=== PATIENT | male | born 1965 | race African-American/Black ===

== ENCOUNTER 2017-04-06 21:59 | Observation (INO) ==
[2017-04-06] MEDS ORDERED: METOCLOPRAMIDE 10 MG/2 ML VIAL IV STA (22:18)
[2017-04-06] MEDS ORDERED: ONDANSETRON 4 MG/2 ML VIAL IV STA (22:18)
[2017-04-06] MEDS ORDERED: PANTOPRAZOLE 40 MG VIAL IV STA (22:18)
[2017-04-06] MEDS ORDERED: SODIUM CHLORIDE 0.9% 500 ML IV STA (22:18)
--- NOTE | 2017-04-06 22:24 | Emergency Department Note ---
Arrival - Arrival Chief Complaint: Weakness Stated Complaint: aching all over ED Nursing Triage Note: C/O Chills/generalized weakness. Onset a couple of days ago progressively getting worse. Pt reports that his blood pressure was low at home (80/40). FSG 76 at time of triage Mode of Arrival: Ambulatory Limitations: No Limitations Source: Patient, Family Time Seen by Provider: 04/06/17 22:18 - History of Present Illness HPI Narrative: This 52-year-old black male presents with a 2 day history of what he described as generalized profound weakness associated with fever, chills, nausea, and an episode of vomiting. This culminated in a syncopal episode which his mother stated the patient was unconscious for 5 minutes. The patient states that prior to the syncopal spell he noted some dizziness but no other symptoms including slurred speech, visual changes, headache, or focal deficits. Patient denies any complaints of cough, sinus symptoms, dysuria, urgency, abdominal pain , or diarrhea. He is a diabetic and has not experienced any labile blood sugars during this timeframe. Accu-Chek on arrival here was 76. Currently appears in no acute distress. Onset (ago): day(s) (Patient presents 2 days post onset of symptoms) Allergies/Adverse Reactions: Allergies Allergy/AdvReac Type Severity Reaction Status Date / Time No Known Allergies Allergy Verified 04/06/17 22:03 Home Medications: Home Medications Medication Instructions Recorded Confirmed Type Metformin HCl 500 mg PO BID 04/06/17 04/06/17 History Valsartan/Hydrochlorothiazide 1 each PO DAILY 04/06/17 04/06/17 History [Valsartan-Hctz 160-12.5 mg Tab] glipiZIDE [Glipizide] 20 mg PO DAILY 04/06/17 04/06/17 History Review of System - Review of System 12 point system: reviewed and no additional remarkable complaints except as stated - Review of System Constitutional: Present: as per HPI Head/Ears/Nose/Throat: Present: see HPI Respiratory: Present: as per HPI Gastrointestinal: Present: as per HPI Genitourinary male: Present: as per HPI Musculoskeletal: Present: as per HPI Medical,Surgical,& Family Hx - Medical History Cardio: History of: Hypertension Endocrine: History of: Diabetes Mellitus (NIDDM), Dyslipidemia - Social History Smoking Status: Never smoker Frequency of Alcohol Use: None Type of Drug Use: None Exam Physical Examination: GENERAL: Obese black male in no acute distress. HEENT: Normocephalic. No trauma. Moist mucous membranes. EOMI. PERRLA. ENT NML NECK: Supple. No adenopathy. CARDIAC: Regular. No murmurs. Heart rate 75 CHEST: Clear to auscultation. No respiratory distress. O2 sat 99% ABDOMEN: Soft. Nontender. Active bowel sounds. EXTREMITIES: No trauma. Normal ROM. No pedal edema. SKIN: No diaphoresis. No rash. NEURO: Alert. Neuro intact. No focal deficits. Vital Signs: Vital Signs Temperature 99.5 F 04/06/17 22:08 Pulse Rate 79 04/06/17 22:08 Respiratory Rate 20 04/06/17 22:08 Blood Pressure 122/80 04/06/17 22:08 O2 Sat by Pulse Oximetry 99 04/06/17 22:05 Course - Reevaluation(s) Reevaluation #1: Discussed with family and patient need for hospitalization given his syncopal episode in his low hematocrit. - Consultations Consultation #1: Discussed with hospitalist service who will admit for further evaluation treatment. Results - Labs CBC & BMP: 04/06/17 22:46 04/06/17 22:46 Labs: I have noted the severe anemia as well as otherwise grossly normal lab with evidence of mild renal azotemia and normal cardiac's. - Diagnostic Findings Procedure: Chest x-ray: image reviewed by me, report reviewed by me (Normal chest), CT: image reviewed by me, report reviewed by me (Head normal brain) Disposition Clinical Impression: Syncope, Moderate anemia Time of Disposition: 01:01
[2017-04-06] MEDS ORDERED: PANTOPRAZOLE 40 MG VIAL IV ONE (22:42)
[2017-04-06] MEDS ORDERED: ONDANSETRON 4 MG/2 ML VIAL ONE (22:42)
[2017-04-06] MEDS ORDERED: METOCLOPRAMIDE 10 MG/2 ML VIAL ONE (22:42)
[2017-04-06 23:04] LABS: Basophils % 0.3 % (0.0-0.8); Eosinophils # 0.1 10*3/uL (0.0-0.87); Eosinophils % 0.9 % (0.00-10.9); Hematocrit 25.8 VOL% (42.0-52.0); Hemoglobin 8.3 GM/DL (14.0-18.0); Immature Granulocytes % 0.7 %; Immature Granulocytes Absolute 0.08 #; Lymphocytes # 1.6 10*3/uL (1.4-4.0); Lymphocytes % 13.7 % (21.2-54.2); Mean Corpuscular HGB Conc 32.2 GM/DL (32-36); Mean Corpuscular Hemoglobin 27 PG (27-34); Mean Corpuscular Volume 84.3 FL (87-102); Mean Platelet Volume 10.9 FL (9.6-12.0); Monocytes % 8.5 % (1.7-12.7); Neutrophils # 8.9 10*3/uL (1.4-7.4); Neutrophils % 75.9 % (38.7-73.9); Platelet Count 380 T/CUMM (130-400); Red Blood Count 3.06 MC/CUMM (3.8-5.5); White Blood Count 11.8 T/CUMM (4-12)
[2017-04-06 23:28] LABS: Alanine Aminotransferase 63 U/L (16-61); Alkaline Phosphatase 105 U/L (45-117); Amylase 34 U/L (25-115); Aspartate Amino Transferase 48 U/L (0-37); Bilirubin,Total < 0.39 MG/DL (0.2-1.0); Blood Urea Nitrogen 20 MG/DL (7-18); Calcium 9.3 MG/DL (8.5-10.1); Glucose 83 MG/DL (74-106); Osmolality,Calculated 282.3 MOS/KG (273-304); Potassium 3.6 MMOL/L (3.5-5.1); Sodium 141 MMOL/L (136-145)
[2017-04-06 23:31] LABS: Troponin I Only < 0.015 NG/ML (0.00-0.045)
[2017-04-07] LABS: Apearance,Urine Slightly Hazy (Clear); Bilirubin,Urine Negative (Negative); Blood, Urine Negative (Negative); Glucose,Urine (UA) Negative (Negative); Hyaline Casts,Urine 7 /LPF (0-3); Ketones,Urine 5 mg/dL (Negative); Mucus,Urine Many /LPF (Occasional); Nitrite,Urine Negative (Negative); Protein,Urine 30 MG/DL; RBC,Urine <1 /HPF (0-4); Squamous Epithelial Cell,Urine Occasional /HPF (0-10); Urine Color Yellow (Yellow); Urine Specific Gravity 1.027 (1.001-1.035); Urine Urobilinogen < 2.0 EU/DL (0.2-1.0); WBC,Urine 1 /HPF (0-6)
[2017-04-07] MEDS ORDERED: SODIUM CHLORIDE 0.9% 1,000 ML IV STA (00:24)
--- NOTE | 2017-04-07 01:57 | Hospitalist History & Physical ---
Assessment and Plan - Time spent with patient Time spent with patient: Greater than 30 minutes (1) Syncope Status: Acute Assessment and plan: Admit to hospitalist services. Telemetry. He is anemic without explanation at this time. H/H 8.3/25.8, and his BP has been low today. I suspect that syncope is related to these. Consult GI. Occult stool. Orthostatic vital signs. Neuro checks Q4 hours. Recheck H/H this a.m. Obtain Iron, TIBC, and Ferritin. He takes ASA 81 mg PO daily; Hold. Hold home BP medications. SCDs for DVT prophylaxis until we know if he has a bleed or not. Repeat CBC and CMP in a.m. Current Visit: Yes (2) Anemia Status: Acute Assessment and plan: As above. Current Visit: Yes (3) Acute kidney failure Status: Acute Assessment and plan: Creatinine 1.4 Given 1500 ml NS bolus in ED. Continue hydration with NS at 125 ml/hr. Recheck CMP in a.m. Current Visit: Yes (4) Elevated LFTs Status: Acute Assessment and plan: Hepatitis panel ordered. Current Visit: Yes (5) Hypertension Status: Acute Assessment and plan: His pressure has been low today. Hold home BP medications until stable. Monitor. Current Visit: Yes (6) Diabetes Status: Acute Assessment and plan: Creatinine 1.4; Hold Metformin. Continue glipizide. Accuchecks and SSI ACHS. ADA diet. Current Visit: Yes (7) DVT prophylaxis Status: Acute Assessment and plan: SCDs at this time until known if patient has a bleed anywhere. Current Visit: Yes History of Present Illness Chief complaint: Syncope History of present illness: Mr. Moreno is a 52 year old male with a past medical history of hypertension and diabetes who presented to the ED tonight following a syncopal episode at home. He reports that he was taking his blood pressure and noticed that it was lower than normal. After which he told his mother that he did not feel well like he was going to pass out. He stood up to walk to the couch and passed out on the couch. His mother reports that he had loss of consciousness for about 5 minutes and would not respond to her. She further reports that his blood pressure was 89/49 at home. She reports that in childhood he had episodes in which he would have vision loss, for which he was treated with aspirin for migraine. Mr. Moreno states that he has had subjective fever, chills, generalized body aches, and cough since Tuesday. He denies headache, chest pain, shortness of breath, dysuria, palpitations, blood in stool, or hematuria. He has had some nausea and one episode of vomiting tonight. Upon arrival in the ED his blood pressure was 122/80, heart rate 79, respirations 20, and O2 sats of 99% on room air. His blood sugar upon arrival was 76, and he reports eating yogurt just prior to the syncopal episode. Significant labs include hemoglobin 8.3, hematocrit 25.8, MCV 84.3, neutrophil percent 75.9 lymphocyte percent 13.7 BUN 20, creatinine 1.4, and troponin less than 0.015. CT of the head was negative for any acute process. Currently, his blood pressure is 110/ 62 and heart rate 65. He is lying in bed resting comfortably. Hospitalist services were consulted, and the patient will be admitted for further evaluation and treatment. Home medications were reviewed and reconciled. This patient is full code. Home Medications Medication Instructions Recorded Confirmed Type Metformin HCl 500 mg PO BID 04/06/17 04/06/17 History Valsartan/Hydrochlorothiazide 1 each PO DAILY 04/06/17 04/06/17 History [Valsartan-Hctz 160-12.5 mg Tab] glipiZIDE [Glipizide] 20 mg PO DAILY 04/06/17 04/06/17 History Allergies Allergy/AdvReac Type Severity Reaction Status Date / Time No Known Allergies Allergy Verified 04/06/17 22:03 Medical,Surgical,& Family Hx - Medical History Cardio: History of: Hypertension Endocrine: History of: Diabetes Mellitus (NIDDM), Dyslipidemia Rheumatology: History of;: Psoriasis - Surgical History HEENT Surgeries: Surgical HX of: Tonsilectomy & Adenoidectomy - Family History Family History: Reports;: Family Cancer, Family Diabetes (Prostate CA-father), Family Hypertension Additional Family History: COPD-Father - Social History Smoking Status: Former smoker Have you smoked in the last 12 months: No Frequency of Alcohol Use: None Type of Drug Use: None Marital Status: Lives With:: Spouse Functional capacity: independent ambulation 12 point system: reviewed and no additional remarkable complaints except as stated - Constitutional Constitutional: Present: chills, fever(s), weakness, other (Generalized body aches). Absent: headache(s) - EENT Eyes: Absent: blurry vision, diplopia, loss of vision Ears: Absent: decreased hearing, ear discharge, ear pain Nose, mouth and throat: Absent: headache(s), nasal congestion, sore throat - Cardiovascular Cardiovascular: Present: lightheadedness. Absent: chest pain at rest, diaphoresis, dyspnea, edema, orthopnea, palpitations - Respiratory Respiratory: Absent: cough, dyspnea, wheezing - Gastrointestinal Gastrointestinal: Present: constipation, nausea, vomiting. Absent: abdominal pain, diarrhea - Genitourinary Genitourinary: Absent: dysuria, flank pain, hematuria, urinary frequency - Musculoskeletal Musculoskeletal: Absent: arthralgias, back pain, joint swelling, muscle weakness , myalgias - Neurological Neurological: Present: syncope. Absent: confusion, dizziness, headache(s), memory loss, numbness, paresthesias - Psychiatric Psychiatric: Absent: anxiety, depression - Endocrine Endocrine: Absent: cold intolerance, polydipsia, polyphagia, polyuria - Hematologic/Lymphatic Hematologic/Lymphatic: Absent: easy bleeding, easy bruising Exam - Constitutional Vitals: Period Temp Pulse Resp BP Sys/Garcia Pulse Ox Last 24 Hr 99.5 F-99.5 F 79-79 20-20 122-122/80-80 99 Exam: Constitutional System: Afebrile. Awake, alert, and oriented x 3. No distress. No tremulousness. Head: Normocephalic, atraumatic. Ears, Nose and Throat System: No pain or tenderness. No epistaxis or discharge Eyes System: Pupils equal, round, and reactive. Extraocular muscles intact. Neck: Supple, without adenopathy, No jugular venous distention. No thyromegaly, neck mass, or prior surgery apparent. Respiratory System: Chest clear to auscultation. Cardiovascular System: Heart with regular rate and rhythm. No murmur. GI System: Abdomen soft, nontender. Normo active bowel sounds present. Compressible ventral hernia noted. Musculoskeletal System: Limbs with no pedal edema. Full distal pulses. Normal capillary refill. Silver scaly lesions on BLEs. Neurological System: No discernable sensory deficit. No aphasia Psychiatric System: Conversation is rational Results - Labs CBC & BMP: 04/06/17 22:46 10/04/17 22:46 Lab Results: I have reviewed the past 24 hour labs Labs: WBC 11.8 RBC 3.06 Hgb 8.3 HCT 25.8 MCV 84.3 Platelet 380 Neutrophil percent 75.9 Lymphocyte percent 13.7 Sodium 141 Potassium 3.6 Chloride 103 BUN 20 Creatinine 1.4 Glucose 83 Calcium 9.3 Total bilirubin less than 0.39 AST 48 ALT 63 Alkaline phosphatase 105 Total CK 368 CK-MB 1.1 Troponin less than 0.015 Albumin 3.0 Urinalysis negative. - Diagnostic Findings Procedure: CT: report reviewed by me (CT Head)
[2017-04-07] MEDS ORDERED: DEXTROSE 50% 25 GM/50 ML VIAL IV PRN (02:00)
[2017-04-07] MEDS ORDERED: DOCUSATE SODIUM 100 MG CAPSULE PO PRN (02:00)
[2017-04-07] MEDS ORDERED: GLUCAGON 1 MG VIAL IM PRN (02:00)
[2017-04-07] MEDS ORDERED: ACETAMINOPHEN 325 MG TABLET PO PRN (02:00)
[2017-04-07] MEDS ORDERED: ONDANSETRON 4 MG/2 ML VIAL IV PRN (02:00)
[2017-04-07] MEDS: SODIUM CHLORIDE 0.9% 1,000 ML IV SCH ×4 (04:08→20:33)
[2017-04-07 04:56] LABS: % Iron Saturation 9.6 % (18-50); Ferritin 240.3 ng/ml (26-388); Free T4 (Free Thyroxine) 1.39 NG/DL (0.76-1.46)
[2017-04-07 05:01] LABS: Magnesium 2.4 MG/DL (1.8-2.4); Risk Ratio 4.44; Thyroid Stimulating Hormone 1.91 uIU/ml (0.358-3.74)
--- NOTE | 2017-04-07 06:45 | XRay Report ---
XR chest 2V Indication: Shortness of breath and fever Comparison: None available Findings: The heart and mediastinum are normal in size and configuration. The pulmonary vascularity is normal in caliber. There is faint increased left lower lung densities. No other lung infiltrates, effusions, pneumothorax or other abnormality is demonstrated. Impression: Faint increased left lower lung densities may indicate pneumonia. PROCEDURE INTERPRETED AT [facility] DEPARTMENT OF RADIOLOGY Final Report Signed by: Dr. Domingo Herzog
[2017-04-07 06:51] LABS: Hepatitis A Ab IgM Quant 0.17 Index; Hepatitis A Ab IgM Result Negative (Negative); Hepatitis B Core IgM Quant 0.11 Index; Hepatitis B Core IgM Result Negative (Negative); Hepatitis B Surface Ag Quant 0.25 Index; Hepatitis B Surface Ag Result Negative (Negative); Hepatitis C Virus Ab Quant 0.04 Index; Hepatitis C Virus Ab Result Negative (Negative)
--- NOTE | 2017-04-07 07:08 | CT Report ---
CT brain Indication: Syncope Comparison: None available Technique: Axial CT imaging of the brain is performed without contrast with 3 mm increments. Findings: No evidence of hemorrhage, mass mass effect midline shift or acute infarct seen. The brain parenchyma attenuation and differentiation appears within normal limits. The ventricles and cisterns are normal in caliber. No cranial or skull base abnormality is identified. Impression: No evidence of abnormality demonstrated. This CT exam was performed using one or more the following dose reduction techniques: Automated exposure control, adjustment of the MA and/or KV according to patient size, or use of iterative reconstruction technique. PROCEDURE INTERPRETED AT [facility] DEPARTMENT OF RADIOLOGY Final Report Signed by: Dr. Domingo Herzog
[2017-04-07 07:32] LABS: Hematocrit 30.8 VOL% (42.0-52.0); Hemoglobin 9.8 GM/DL (14.0-18.0)
[2017-04-07] MEDS: INSULIN LISPRO 100 UNIT/ML SUBCUT SCH ×4 (08:23→20:38)
[2017-04-07] MEDS: glipiZIDE 10 MG TABLET PO SCH (08:35)
[2017-04-07] MEDS: PANTOPRAZOLE 40 MG TABLET PO SCH (08:35)
[2017-04-07] MEDS ORDERED: ENOXAPARIN 40 MG/0.4 ML SYRINGE SUBCUT SCH (09:00)
--- NOTE | 2017-04-07 09:43 | Gastrointestinal Consult Note ---
<Susan Montalvo - Last Filed: 04/07/17 09:40> Assessment and Plan (1) Anemia Status: Acute Assessment and plan: 04/07-admitted with several day history of weakness with syncopal episode on last night and hypotension. No known prior history of anemia in the past. No overt bleeding. H&H 02/25 on admission. Iron studies noted as below. No prior history of endoscopy. Stools for occult blood currently pending. Consider EGD for further evaluation of anemia source. Plan an addendum to followed by Dr. Best. Current Visit: Yes History of Present Illness Chief complaint: Anemia History of present illness: Mr. Moreno is a 52 year old male who was admitted to the hospital on yesterday evening with several day history of weakness with fever and chills. Patient states that he was in his usual state of health until last Tuesday. 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 He states at first he thought maybe his blood sugar had dropped however this was not the case. He states that he felt a little bit dizzy at that time as well. Patient states he has had these symptoms off and on for the last several days however last night, he was at his mother's house. He states that he went to stand up and when he did he "passed out". Patient did not have a reported loss of consciousness that he can recall despite his mother stating patient was unconscious for approximately 5 minutes. At that time was brought to the emergency room via personal vehicle. Patient was found on admission to have anemia with an H&H of 02/25. He states that he has not been anemic in the past that he is aware of and denies any history of blood transfusions. He denies any reports of melena or hematochezia. Denies any recent weight loss. Denies any fever, chills or night sweats. He was also noted on admission to have mildly elevated transaminases with AST 48 ALT 63. Patient denies a prior history of elevated LFTs. He denies history of smoking or alcohol use. Iron studies were done with iron noted at 25, TIBC 261, saturation 9.6, ferritin 240 recheck on his H& H today is noted at 9.8/30.8 without blood transfusion. Patient denies any epigastric pain associated with eating. Denies any dysphagia however states he has had an increase in dyspepsia as of recently with belching and bloating as well as uncontrolled reflux with [id number] Tums. Patient denies any NSAID use except over the this past weekend due to the fever/chills, states he did take some ibuprofen. Home Medications Medication Instructions Recorded Confirmed Type Metformin HCl 500 mg PO BID 04/06/17 04/06/17 History Valsartan/Hydrochlorothiazide 1 each PO DAILY 04/06/17 04/06/17 History [Valsartan-Hctz 160-12.5 mg Tab] glipiZIDE [Glipizide] 20 mg PO DAILY 04/06/17 04/06/17 History Allergies Allergy/AdvReac Type Severity Reaction Status Date / Time No Known Allergies Allergy Verified 04/06/17 22:03 Medical,Surgical,& Family Hx - Medical History Cardio: History of: Hypertension Endocrine: History of: Diabetes Mellitus (NIDDM), Dyslipidemia Rheumatology: History of;: Psoriasis - Surgical History HEENT Surgeries: Surgical HX of: Tonsilectomy & Adenoidectomy - Family History Family History: Reports;: Family Cancer, Family Diabetes (Prostate CA-father), Family Hypertension - Social History Smoking Status: Never smoker Frequency of Alcohol Use: None Type of Drug Use: None 12 point system: reviewed and no additional remarkable complaints except as stated - Constitutional Constitutional: Present: as per HPI, weakness - EENT Eyes: Present: as per HPI Ears: Present: as per HPI Nose, mouth and throat: Present: as per HPI - Cardiovascular Cardiovascular: Present: as per HPI - Respiratory Respiratory: Present: as per HPI - Gastrointestinal Gastrointestinal: Present: as per HPI, nausea - Genitourinary Genitourinary: Present: as per HPI - Musculoskeletal Musculoskeletal: Present: as per HPI - Neurological Neurological: Present: as per HPI, syncope - Psychiatric Psychiatric: Present: as per HPI - Endocrine Endocrine: Present: as per HPI - Hematologic/Lymphatic Hematologic/Lymphatic: Present: as per HPI Exam - Constitutional Vitals: Period Temp Pulse Resp BP Sys/Garcia Pulse Ox Last 24 Hr 97 F-99.5 F 55-81 18-20 102-131/50-80 98-100 General appearance: normal weight, no acute distress - Head Head exam: Present: normal inspection, normocephalic - Eye Eye exam: Present: other (Lids and conjunctivae are unremarkable). Absent: scleral icterus - ENT ENT exam: Present: normal exam, normal oropharynx - Neck Neck exam: Present: normal inspection - Respiratory Respiratory exam: Present: clear to auscultation bilaterally. Absent: rales, rhonchi, wheezes - Cardiovascular Cardiovascular exam: Present: regular rate and rhythm. Absent: diastolic murmur , JVD, systolic murmur - GI/Abdominal GI/Abdominal exam: Present: normal bowel sounds, soft. Absent: ascites, distended, mass, organomegaly, tenderness - Extremities Exam Extremities exam: Present: normal inspection, full ROM - Back Exam Back exam: Present: normal inspection - Neurological Exam Neurological exam: Present: alert, oriented X3 - Psychiatric Psychiatric exam: Present: normal affect, normal mood - Skin Skin exam: Present: normal color, warm, dry Results - Labs CBC & BMP: 04/07/17 07:10 04/06/17 22:46 Lab Results: I have reviewed the past 24 hour labs <Meño Best - Last Filed: 04/07/17 21:16> History of Present Illness Chief complaint: 3030 History of present illness: Mr. Moreno is a 52 year old male Exam - Constitutional Vitals: Period Temp Pulse Resp BP Sys/Garcia Pulse Ox Last 24 Hr 97 F-99.5 F 55-81 18-20 98-132/50-80 97-100 Results - Labs CBC & BMP: 04/07/17 07:10 04/06/17 22:46
--- NOTE | 2017-04-07 10:35 | Hospitalist Progress Note ---
Assessment and Plan (1) Renal insufficiency Status: Acute Assessment and plan: His BUN and creatinine on admission were 20 and 1.4 respectively. It is unclear if this is acute or chronic. Current Visit: Yes (2) Syncope Status: Acute Current Visit: Yes (3) Anemia Status: Acute Assessment and plan: His hematocrit and hemoglobin today are 30.8 and 9.8 respectively. Current Visit: Yes Qualifiers: Anemia type: unspecified type Qualified Code(s): D64.9 - Anemia, unspecified (4) Hypertension Status: Acute Assessment and plan: Blood pressure today is 102/50. Current Visit: Yes (5) Diabetes Status: Acute Assessment and plan: His blood glucose today is 128. He continues on sliding scale regular insulin coverage. Current Visit: Yes Qualifiers: Diabetes mellitus type: type 2 Diabetes mellitus intermediate designer insulin use: without intermediate designer use Hospitalist: Subjective Interval history: Patient feels well today with no complaints. He is not experiencing dizziness or lightheadedness. He has been seen in consultation by gastroenterology who is planning to perform an EGD. Exam - Constitutional Vitals: Period Temp Pulse Resp BP Sys/Garcia Pulse Ox Last 24 Hr 97 F-99.5 F 55-81 18-20 102-131/50-80 98-100 General appearance: no acute distress - Head Head exam: Present: normal inspection - Neck Neck exam: Present: normal inspection - Respiratory Respiratory exam: Present: clear to auscultation bilaterally - Cardiovascular Cardiovascular exam: Present: regular rate and rhythm - GI/Abdominal GI/Abdominal exam: Present: normal bowel sounds, soft, other (Nontender with no palpable masses or hepatosplenomegaly.) - Extremities Exam Extremities exam: Present: normal inspection - Neurological Exam Neurological exam: Present: alert, oriented X3 - Skin Skin exam: Present: normal color, warm, intact Results - Labs CBC & BMP: 04/07/17 07:10 04/06/17 22:46
[2017-04-08] MEDS: SODIUM CHLORIDE 0.9% 1,000 ML IV SCH ×3 (03:43→21:30)
[2017-04-08 05:04] LABS: Basophils % 0.5 % (0.0-0.8); Eosinophils # 0.2 10*3/uL (0.0-0.87); Eosinophils % 3.2 % (0.00-10.9); Hematocrit 32.2 VOL% (42.0-52.0); Hemoglobin 10.1 GM/DL (14.0-18.0); Immature Granulocytes % 0.6 %; Immature Granulocytes Absolute 0.04 #; Lymphocytes # 1.7 10*3/uL (1.4-4.0); Lymphocytes % 26.7 % (21.2-54.2); Mean Corpuscular HGB Conc 31.4 GM/DL (32-36); Mean Corpuscular Hemoglobin 27 PG (27-34); Mean Corpuscular Volume 86.1 FL (87-102); Mean Platelet Volume 11.4 FL (9.6-12.0); Monocytes # 0.6 10*3/uL (0.11-0.8); Neutrophils # 3.7 10*3/uL (1.4-7.4); Platelet Count 320 T/CUMM (130-400); Red Blood Count 3.74 MC/CUMM (3.8-5.5); Red Cell Distribution Width 14.1 % (9.3-17.3); White Blood Count 6.2 T/CUMM (4-12)
[2017-04-08 05:46] LABS: Albumin 2.2 G/DL (3.4-5.0); Bilirubin,Total 0.7 MG/DL (0.2-1.0); Calcium 8.1 MG/DL (8.5-10.1); Osmolality,Calculated 292.6 MOS/KG (273-304); Potassium 4.9 MMOL/L (3.5-5.1); Total Protein 5.3 G/DL (6.4-8.3)
[2017-04-08] MEDS: INSULIN LISPRO 100 UNIT/ML SUBCUT SCH ×4 (08:45→21:20)
[2017-04-08] MEDS: glipiZIDE 10 MG TABLET PO SCH (08:45)
[2017-04-08] MEDS: PANTOPRAZOLE 40 MG TABLET PO SCH (08:46)
[2017-04-08] MEDS ORDERED: PROPOFOL 200 MG/20 ML VIAL IV ONE (09:00)
[2017-04-08] MEDS ORDERED: LIDOCAINE 2% 5 ML VIAL ONE (09:00)
--- NOTE | 2017-04-08 10:13 | Ultrasound Report ---
US abdomen Indication: Elevated LFT Comparison: None Technique: Multiple longitudinal and transverse real-time sonographic images of the abdomen are obtained. Findings: The liver measures 15.7 cm and demonstrates mildly increased echogenicity without focal abnormality on submitted images. Nonspecific mild gallbladder wall thickening. No significant gallbladder distention or evidence of cholelithiasis. The common bile duct measures 0.5 cm in diameter. There is no evidence of intrahepatic ductal dilatation. The right and left kidneys measure 11.4 cm and 10.8 cm, respectively. There is no evidence of hydronephrosis. The spleen measures 8.9 cm without focal abnormality. Evaluation of the pancreas limited secondary to bowel gas.. IVC and aorta: Visualized portions grossly unremarkable.. No evidence of ascites. IMPRESSION: Nonspecific mild gallbladder wall thickening. No significant gallbladder distention or evidence of cholelithiasis. Nuclear medicine hepatobiliary imaging study may be beneficial for further evaluation. Mild increased echogenicity of the liver may reflect steatosis. PROCEDURE INTERPRETED AT [facility] DEPARTMENT OF RADIOLOGY Final Report Signed by: Dr Nain Carbajal
--- NOTE | 2017-04-08 10:48 | History and Physical Update ---
History and Physical Update - Physical Exam Mental Status: alert and oriented Heart: regular rate and rhythm Lung: clear to auscultation Abdomen: within normal limits Vitals: within normal limits
--- NOTE | 2017-04-08 11:02 | Operative Note ---
Pre-op diagnosis: Anemia and epigastric pain Procedure: EGD with biopsy 52-year-old gentleman admitted with syncopal episode and anemia complaining of frequent reflux with nonsteroidal use and antiacids. Now for EGD to further evaluate. Informed consent was obtained from the patient He was sedated with general anesthesia per anesthesia protocol. Patient was placed in left lateral decubitus position the Olympus flexible video upper endoscope was inserted into the oral cavity under direct vision the esophagus was intubated. Findings: Esophagus-normal proximal mid esophageal mucosa. Distal esophagus with moderate hiatal hernia and distal esophagitis moderate. No Hay's no varices were identified no stricture was seen. Stomach-normal insufflation. Normal mucosa of the body fundus and cardia the stomach. In the antrum of the stomach 3 ulcerations each lira-based measuring 4 mm with no visible vessels were identified. Biopsies were taken from the periphery of these ulcers. Pylorus-normal Duodenum-normal from the bulb of the duodenum to the third portion of the duodenum. The procedure was terminated placed our procedure well he is discharge recovery in good condition. Postop diagnosis: 1. Acute peptic ulcer disease-continue PPI treatment. Follow-up biopsy- positive for H. pylori we will treat. Avoid nonsteroidals. 2. Gastroesophageal reflux disease with esophagitis-continue PPI treatment and antireflux precautions. 3. Abdominal ultrasound does confirm the presence of fatty liver and treatment of his hyperlipidemia weight control and glycemic control are suggested. 4. Advance diet as tolerated. Okay to discharge from my standpoint. I will be out over the weekend call coverage if needed. Anesthesia: other (General) Surgeon / Physician: Meño Best Estimated blood loss: none Specimens: other (Gastric ulcer) Condition: stable Disposition: post procedure unit Results - Labs CBC & BMP: 04/08/17 03:24 04/08/17 03:24 Discharge Plan - Discharge Medications No Action glipiZIDE [Glipizide] 20 mg PO DAILY Valsartan/Hydrochlorothiazide [Valsartan-Hctz 160-12.5 mg Tab] 1 each PO DAILY Metformin HCl 500 mg PO BID - Follow Up or Referral - Forms/Instructions
--- NOTE | 2017-04-08 11:04 | Hospitalist Progress Note ---
Assessment and Plan (1) Renal insufficiency Status: Acute Assessment and plan: His BUN and creatinine on admission were 13 and 1.1 respectively. The improvement of his renal function with intravenous sodium chloride is most compatible with acute on chronic renal insufficiency. Current Visit: Yes (2) Syncope Status: Acute Assessment and plan: He has experienced no recurrent episodes of syncope in the hospital. Current Visit: Yes (3) Anemia Status: Acute Assessment and plan: His hematocrit and hemoglobin today are 32.2 and 10.1 respectively today. Current Visit: Yes Qualifiers: Anemia type: unspecified type Qualified Code(s): D64.9 - Anemia, unspecified (4) Hypertension Status: Acute Assessment and plan: Blood pressure today is 116/65. Current Visit: Yes (5) Diabetes Status: Acute Assessment and plan: His blood glucose today is 100. He continues on sliding scale regular insulin coverage. Current Visit: Yes Qualifiers: Diabetes mellitus type: type 2 Diabetes mellitus jail insulin use: without customs brokerage agent use Hospitalist: Subjective Interval history: Patient feels well today with no complaints. He is to undergo EGD by gastroenterology today. Further recommendations pending those results. Exam - Constitutional Vitals: Period Temp Pulse Resp BP Sys/Garcia Pulse Ox Last 24 Hr 96.5 F-98.2 F 55-72 16-20 95-132/46-76 96-100 General appearance: no acute distress - Head Head exam: Present: normal inspection - Neck Neck exam: Present: normal inspection - Respiratory Respiratory exam: Present: clear to auscultation bilaterally - Cardiovascular Cardiovascular exam: Present: regular rate and rhythm - GI/Abdominal GI/Abdominal exam: Present: normal bowel sounds, soft, other (Nontender with no palpable masses or hepatosplenomegaly.) - Extremities Exam Extremities exam: Present: normal inspection - Skin Skin exam: Present: normal color, warm, intact Results - Labs CBC & BMP: 04/08/17 03:24 04/08/17 03:24
--- NOTE | 2017-04-08 11:50 | Anesthesia Post-Op ---
Anesthesia Post OP - Post Ansesthetic Evaluation Patient seen in post op: Yes Resp: within normal limits CV: within normal limits Mental: within normal limits Temp: within normal limits Dthy-Se-Icfutqozz: within normal limits Nausea and Vomiting: within normal limits Pain: within normal limits
[2017-04-09] MEDS: SODIUM CHLORIDE 0.9% 1,000 ML IV SCH ×2 (05:19→10:52)
[2017-04-09 07:48] VITALS: BP 112/60
[2017-04-09] MEDS ORDERED: PANTOPRAZOLE 40 MG TABLET PO SCH (09:30)
[2017-04-09] MEDS: glipiZIDE 10 MG TABLET PO SCH (09:33)
[2017-04-09] MEDS: INSULIN LISPRO 100 UNIT/ML SUBCUT SCH ×2 (09:34→12:38)
[2017-04-09] MEDS: PANTOPRAZOLE 40 MG TABLET PO SCH (09:35)
--- NOTE | 2017-04-09 09:44 | Discharge Summary ---
Hospital Course - Hospital Course Hospital Course: Mr. Moreno is a 52 year old male who was admitted to the hospital on yesterday evening with several day history of weakness with fever and chills. Patient states that he was in his usual state of health until last Tuesday. 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 He states at first he thought maybe his blood sugar had dropped however this was not the case. He states that he felt a little bit dizzy at that time as well. Patient states he has had these symptoms off and on for the last several days however last night, he was at his mother's house. He states that he went to stand up and when he did he "passed out". Patient did not have a reported loss of consciousness that he can recall despite his mother stating patient was unconscious for approximately 5 minutes. At that time was brought to the emergency room via personal vehicle. Patient was found on admission to have anemia with an H&H of 8/25. He states that he has not been anemic in the past that he is aware of and denies any history of blood transfusions. He denies any reports of melena or hematochezia. Denies any recent weight loss. Denies any fever, chills or night sweats. He was also noted on admission to have mildly elevated transaminases with AST 48 ALT 63. Patient denies a prior history of elevated LFTs. He denies history of smoking or alcohol use. Iron studies were done with iron noted at 25, TIBC 261, saturation 9.6, ferritin 240 recheck on his H& H today is noted at 9.8/30.8 without blood transfusion. Patient denies any epigastric pain associated with eating. Denies any dysphagia however states he has had an increase in dyspepsia as of recently with belching and bloating as well as uncontrolled reflux with [id number] Tums. Patient denies any NSAID use except over the this past weekend due to the fever/chills, states he did take some ibuprofen. Mr. Moreno was admitted to the hospital diagnosis of weakness, anemia, and possible gastrointestinal bleeding. He was seen in consultation by Dr. Meño Best of gastroenterology. The patient underwent esophagogastroduodenoscopy on 04/08/2017 demonstrating acute peptic ulcer disease and gastroesophageal reflux disease with esophagitis. An abdominal ultrasound demonstrated evidence of fatty liver. The patient was treated in the hospital with pantoprazole and continuation of his previous medications. At the time of his discharge she was comfortable with no complaints. Laboratory testing prior to discharge demonstrated hematocrit 32.2, hemoglobin 10.1, glucose 145, BUN 13, and creatinine 1.1. Diagnosis - Discharge Diagnosis (1) Renal insufficiency Status: Acute (2) Syncope Status: Acute (3) Anemia Status: Chronic (4) Hypertension Status: Chronic (5) Peptic ulcer disease Status: Acute (6) GERD with esophagitis Status: Acute (7) Fatty infiltration of liver Status: Chronic (8) Diabetes mellitus type 2 in obese Status: Chronic (9) Acute kidney failure Status: Acute Discharge Plan - Discharge Data Disposition: Disch To Home/Self Care Condition at Discharge: Stable Discharge Diet: diabetic diet Activity: resume usual activities as tolerated Driving: no restrictions - Discharge Medications New Atorvastatin [Lipitor] 40 mg PO BEDTIME #30 tablet Pantoprazole Tab [Protonix Tab] 40 mg PO BID #60 tablet Continue glipiZIDE [Glipizide] 20 mg PO DAILY Valsartan/Hydrochlorothiazide [Valsartan-Hctz 160-12.5 mg Tab] 1 each PO DAILY Metformin HCl 500 mg PO BID - Follow Up or Referral - Forms/Instructions Exam - Constitutional Vitals: Period Temp Pulse Resp BP Sys/Garcia Pulse Ox Last 24 Hr 96 F-98.1 F 47-63 16-20 105-134/56-73 92-100 Discharge Results Procedures and tests throughout hospitalization: Pending Orders 04/06/17 Blood Culture Stat 04/07/17 02:14 Occult Blood, Stool Stat Labs on day of discharge: Labs from last 24 hours 04/09/17 04/08/17 04/08/17 07:14 20:00 15:16 POC Glucose 140 H 191 H 139 H 04/08/17 04/06/17 12:01 22:05 POC Glucose 152 H 76 Preliminary micro results at discharge 04/06/17 Unknown Blood Culture - Preliminary Blood No growth at 1 day 04/06/17 Unknown Blood Culture - Preliminary Blood No growth at 1 day DS: Provider Date of admission: 04/07/17 01:57 Primary care physician: . No PCP Attending physician on admission: Cameron Hernandez Consults: 04/07/17 02:00 Consult to Physician [CONS] Routine Comment: Anemia Consulting Provider: Meño Best Consult to Specialist Group: Gastroenterology Person Notified: Nargis Date Notified: 04/07/17 Time Notified: 08:15 Consult Notification Comment: texted to Susan at 0810 Discharging clinician: Cameron Hernandez
[2017-04-09] MEDS ORDERED: ATORVASTATIN 40 MG TABLET PO SCH (21:00)
--- NOTE | 2017-04-11 11:22 | Pathology Report from [facility] ---
[facility] ACC[facility] # : [id number] PATIENT NAME : Yusuf Moreno ORDERING DR : RUPA CHAVEZ MD CLINICAL HX: Anemia POST-OP DX: Gastric ulcer SPECIMEN INFO: Gastric GROSS DESCRIPTION: The specimen is received in formalin labeled with the patients name and consists of a 0.4 x 0.4 cm aggregate of lazo tissue. Submitted in one cassette. DIAGNOSIS FOR YUSUF MORENO: GASTRIC BIOPSIES: Marked chronic gastritis, active with focal erosion. H. pylori not seen on H&E or special stain with appropriate control. COLLECTED DATE: 04/08/2017 [facility] REPORT DATE: 04/11/2017 ELECTRONICALLY SIGNED BY: Jagdish Pham M.D. 04/11/2017 - 10:20:13 [facility]
== END 2017-04-09 12:21 | disposition home or self-care (01) ==
LOC: N.ED 21:59 → N.TELEN 21:59